=== PATIENT | female | born 1985 | race Two or more races ===

== ENCOUNTER 2020-05-14 05:05 | Day surgery (SDC) | payer OTHER | END 2020-05-14 15:20 | disposition home or self-care (01) | LOC: CIR.AMB 05:05 | PROVIDERS: ATTEND Obstetrics & Gynecology | DX: N93.8 Other specified abnormal uterine and vaginal bleeding (principal); Z20.828 Contact with and (suspected) exposure to other viral communicable diseases ==

== ENCOUNTER 2022-08-26 07:45 | Inpatient (IN) | payer OTHER ==
[~2022-08-26] VITALS: Ht 162.6 cm; Wt 94.8 kg
[2022-09-03] MEDS ORDERED: POLY119PG PO (06:59)
[2022-09-03] MEDS ORDERED: NEURONTIN600 MG PO (06:59)
[2022-09-03] MEDS ORDERED: SIMETHICONE125 M1 PO (06:59)
[2022-09-03] MEDS ORDERED: IBUPROFEN800 MG PO (06:59)
== END 2022-09-03 09:18 | disposition home or self-care (01) | DRG 743 ==
LOC: ADM 07:45 → O/R 09-01 05:05 → OB/GYN 09-01 05:05 → SURH 09-01 07:00 → CIR.AMB 09-01 07:45 → EDSTATUS 09-01 07:45 → OB/GYN 09-01 09:37
PROVIDERS: ADMIT Obstetrics & Gynecology; ATTEND Obstetrics & Gynecology
PROC: 0UT50ZZ Resection of Right Fallopian Tube, Open Approach (ICD-10-PCS; 2022-09-01)
PROC: 0UT90ZZ Resection of Uterus, Open Approach (ICD-10-PCS; principal; 2022-09-01 07:00)
DX: D25.2 Subserosal leiomyoma of uterus (principal); N72 Inflammatory disease of cervix uteri; Z20.822 Contact with and (suspected) exposure to COVID-19